=== PATIENT | male | born 1990 | race Caucasian/White ===

== ENCOUNTER 2020-10-03 08:20 | Emergency (ER) | payer OTHER ==
[2020-10-03 09:02] LABS: BASOPHIL 0.5 % (0-2); EOSINOPHIL 1.6 % (0-5); HCT 44.2 % (42.0-52.0); HGB 16.1 g/dl (13.2-18.0); LYMPHOCYTE 30.2 % (15-48); MCH 32.5 pg (25.0-31.0); MCHC 36.4 g/dL (32.0-36.0); MCV 89.3 fL (78.0-100.0); MPV 10.8 fL (6.0-9.5); NEUTROPHIL 60.2 % (41-80); NRBC 0; PLT 146 K/uL (150-400); RBC 4.95 M/uL (4.70-6.00); RDW 12.2 % (11.5-14.0); WBC 6.4 K/uL (4.0-10.5)
[2020-10-03 09:05] LABS: ALBUMIN 4.2 g/dL (3.4-5.0); BILIRUBIN - TOTAL 0.9 mg/dL (0.2-1.0); BUN/CREAT RATIO (CALC) 13.7 RATIO; CREATININE 1.17 mg/dL (0.67-1.17); GLOBULIN (CALCULATION) 3.7 g/dL; POTASSIUM 4.1 mmol/L (3.5-5.1); TOTAL PROTEIN 7.9 g/dL (6.4-8.2)
[2020-10-03 09:23] LABS: INR 1.04 (0.9-1.2); PTT 31.3 SECONDS (24.4-34.7)
[2020-10-03] MEDS ORDERED: NORCO 5-325 TA1 EACH PO (12:07)
[2020-10-03] MEDS ORDERED: MEDROL 4MG DOSEP4 MG PO (12:07)
[2020-10-03] MEDS ORDERED: NAPROXEN500 MG PO (12:07)
== END 2020-10-03 12:25 | disposition home or self-care (01) ==
LOC: FER 08:20
PROVIDERS: Emergency Medicine
DX: I30.0 Acute nonspecific idiopathic pericarditis (principal); F17.210 Nicotine dependence, cigarettes, uncomplicated; Z88.0 Allergy status to penicillin
CPT/HCPCS: 36415; 71250; 80053; 84484; 85025; 85610; 85730; 93005; J1170; J1885; J2405

== ENCOUNTER 2021-02-22 12:31 | Emergency (ER) | payer SELFPAY ==
[~2021-02-22 12:31] MED LIST: MEDROL 4MG DOSEP4 MG PO; NAPROXEN500 MG PO; NORCO 5-325 TA1 EACH PO
[2021-02-22 15:48] LABS: BASOPHIL 0.6 % (0-2); HCT 43.1 % (42.0-52.0); HGB 15.4 g/dl (13.2-18.0); LYMPHOCYTE 25.8 % (15-48); MCH 32.5 pg (25.0-31.0); MCHC 35.7 g/dL (32.0-36.0); MCV 90.9 fL (78.0-100.0); MONOCYTE 7.4 % (0-12); MPV 10.6 fL (6.0-9.5); NEUTROPHIL 63.9 % (41-80); NRBC 0; PLT 164 K/uL (150-400); RBC 4.74 M/uL (4.70-6.00); RDW 12.2 % (11.5-14.0)
[2021-02-22 16:09] LABS: BUN/CREAT RATIO (CALC) 16.7 RATIO; CREATININE 1.02 mg/dL (0.67-1.17)
[2021-02-22 16:29] LABS: CORONAVIRUS 2019 SARS-COV-2 NEGATIVE (NEGATIVE); INFLUENZA A NAA NEGATIVE (NEGATIVE)
[2021-02-22] MEDS ORDERED: PREDNISONE 20MG20 MG PO (19:02)
[2021-02-22] MEDS ORDERED: MEDROL 4MG DOSEP4 MG PO (19:02)
[2021-02-22] MEDS ORDERED: CYCLOBENZAPRINE10 MG PO (19:15)
== END 2021-02-22 19:20 | disposition home or self-care (01) ==
LOC: FER 12:31
PROVIDERS: Nurse Practitioner Family
DX: S29.012A Strain of muscle and tendon of back wall of thorax, initial encounter (principal); Z88.0 Allergy status to penicillin; Z20.822 Contact with and (suspected) exposure to COVID-19; X58.XXXA Exposure to other specified factors, initial encounter
CPT/HCPCS: 36415; 71045; 71275; 80048; 84484; 85025; 85379; J1100; J1885; J7030; Q9967; U0002